=== PATIENT | female | born 1995 | race Caucasian/White ===

== ENCOUNTER 2022-09-12 09:33 | Emergency (ER) | payer OTHER ==
[~2022-09-12] VITALS: Ht 167.6 cm; Wt 74.8 kg
[2022-09-12 09:46] VITALS: BP 143/40; PULSE 89; RESP 20; TEMP 98; O2SAT 99
[2022-09-12 10:20] LABS: APPEARANCE,URINE CLEAR (CLEAR); BILIRUBIN,URINE NEGATIVE (NEGATIVE); BLOOD, URINE 1+ (NEGATIVE); COLOR,URINE YELLOW (YELLOW); LEUKOCYTE ESTERASE ,URINE NEGATIVE (NEGATIVE); NITRITE, URINE NEGATIVE (NEGATIVE); UGLUCOSE NEGATIVE (NEGATIVE)
[2022-09-12] MEDS ORDERED: FLUC150T PO (11:28)
[2022-09-12] MEDS ORDERED: DOXY-690 PO (11:28)
[2022-09-12] MEDS ORDERED: METR-435 PO (11:28)
[2022-09-12] MEDS ORDERED: cefTRIAXone 500 MG in LIDOCAINE MPF 1% 1 ML IM ONE (11:30)
[2022-09-12] MEDS ORDERED: cefTRIAXone 500 MG VIAL ONE (11:40)
[2022-09-12] MEDS ORDERED: LIDOCAINE MPF 1% 5 ML ONE (11:40)
--- NOTE | 2022-09-12 11:45 | NUR ---
pt assessment completes by delia johnson and shyam for d/c.
[2022-09-12 12:00] VITALS: BP 143/40; PULSE 89; RESP 20; TEMP 98; O2SAT 99
--- NOTE | 2022-09-12 12:00 | NUR ---
Patient discharged with v/s stable. Written and verbal after care instructions given and explained. Patient alert, oriented and verbalized understanding of instructions. Ambulatory with steady gait. All questions addressed prior to discharge. ID band removed. Patient advised to follow up with PMD. Rx of vibramycin, diflucan given. Patient educated on indication of medication including possible reaction and side effects. Opportunity to ask questions provided and answered.
== END 2022-09-12 12:00 | disposition home or self-care (01) ==
LOC: MED 09:33
DX: N76.0 Acute vaginitis (principal); B37.31 Acute candidiasis of vulva and vagina; Z20.2 Contact with and (suspected) exposure to infections with a predominantly sexual mode of transmission; Z79.899 Other long term (current) drug therapy
CPT/HCPCS: 81001; 81025; 87210; 87491; 96372; 99283; J0696; J2001

== ENCOUNTER 2023-06-13 13:50 | Observation (INO) | payer OTHER ==
[~2023-06-13] VITALS: Ht 167.6 cm; Wt 78.9 kg
[~2023-06-13 13:50] MED LIST: DOXY-690 PO; FLUC150T PO; METR-435 PO
[2023-06-13 14:02] VITALS: BP 105/49; PULSE 85; RESP 18; TEMP 97.9; O2SAT 98
[2023-06-13 14:48] VITALS: BP 94/55; PULSE 75; RESP 18; TEMP 98.1
== END 2023-06-13 17:20 | disposition home or self-care (01) ==
LOC: MED 13:50 → EDSTATUS 14:15 → MLD 14:29
PROVIDERS: ADMIT Obstetrics & Gynecology; ATTEND Obstetrics & Gynecology
DX: O46.92 Antepartum hemorrhage, unspecified, second trimester (principal); O26.892 Other specified pregnancy related conditions, second trimester; R10.9 Unspecified abdominal pain; Z3A.25 25 weeks gestation of pregnancy
CPT/HCPCS: 76805; 76817; G0378; G0379; Q0092